=== PATIENT | male | born 1985 | race African-American/Black ===

== ENCOUNTER 2019-10-25 17:49 | Emergency (ER) | payer OTHER ==
[~2019-10-25] VITALS: Ht 172.7 cm; Wt 63.5 kg
[2019-10-25 20:33] LABS: PLATELET COUNT 300 K/uL (142-355)
[2019-10-25 21:54] VITALS: BP 112/73; TEMP 98.6
== END 2019-10-25 21:54 | disposition home or self-care (01) ==
LOC: ED 17:49
PROVIDERS: Family Medicine
PROC: 0H9NXZZ Drainage of Left Foot Skin, External Approach (ICD-10-PCS; principal; 2019-10-25)
PROC: 2W3RX1Z Immobilization of Left Lower Leg using Splint (ICD-10-PCS; 2019-10-25)
DX: L03.116 Cellulitis of left lower limb (principal); L02.612 Cutaneous abscess of left foot
CPT/HCPCS: 36415; 85027; 96372; 99283; J0696